=== PATIENT | male | born 1985 | race Caucasian/White ===

== ENCOUNTER 2018-10-15 14:18 | Emergency (ER) | payer SELFPAY ==
[~2018-10-15] VITALS: Ht 185.4 cm; Wt 92.5 kg
[2018-10-15 14:18] VITALS: BP 143/85
--- NOTE | 2018-10-15 14:18 | NUR ---
PATIENT [facility] TO ER CHAIR [facility]
--- NOTE | 2018-10-15 14:20 | NUR ---
PT IS A 33 Y/O MALE BIB [place] [facility] FOR PRE-BOOK. PER PD PT IS CURRENTLY ON 5150 HOLD BUT WILL GO TO ANOTHER FACILITY, AWAITING ASSIGNMENT FROM [facility]. PT IS IN NO SIGNS OF PAIN. PT IN NO SIGNS OF CP, SOB, N/V/D. PT AWAKE AND ALERT, RR EVEN/UNLABORED. PT REPOSITIONED FOR COMFORT, SITTING IN HANDCUFFS WITH PD. ER MD DR. CALDERA NOTIFIED. WILL CONTINUE TO MONITOR. NO PMH NKA
--- NOTE | 2018-10-15 14:22 | NUR ---
PATIENT SITTING IN CHAIR E, UNDER EMT SITTER, SI PRECAUTIONS IMPLEMENTED.
--- NOTE | 2018-10-15 14:25 | NUR ---
KUSUM RUIZ MADE AWARE PT WILL BE TAKEN TO ANOTHER FACILITY FOR 5150 HOLD PLACEMENT.
--- NOTE | 2018-10-15 14:40 | NUR ---
ER MD DR. CALDERA EVALUATING PATIENT.
[2018-10-15 15:10] VITALS: BP 103/82
--- NOTE | 2018-10-15 15:10 | NUR ---
Patient discharged with v/s stable. Written and verbal after care instructions given and explained. Patient verbalized understanding. Police with in custody. All questions addressed prior to discharge. Advised to follow up with PMD.
== END 2018-10-15 15:10 | disposition home or self-care (01) ==
LOC: MED 14:18 → EDSEX 14:18 → MED 15:10
DX: F15.90 Other stimulant use, unspecified, uncomplicated (principal); Z02.89 Encounter for other administrative examinations
CPT/HCPCS: 99283

== ENCOUNTER 2019-04-04 12:17 | Emergency (ER) | payer OTHER ==
[~2019-04-04] VITALS: Ht 185.4 cm; Wt 91.6 kg
[2019-04-04 12:23] VITALS: BP 116/68
--- NOTE | 2019-04-04 12:23 | NUR ---
PT AMB TO BED 3 TO BE TRAIGED AT BEDSIDE, STEADY GAIT
--- NOTE | 2019-04-04 12:23 | NUR ---
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
[2019-04-04] MEDS ORDERED: methylPREDNISolone SS 125 MG/2 ML VIAL IVP ONE (12:25)
[2019-04-04] MEDS ORDERED: hydrOXYzine HCL 25 MG TAB PO ONE (12:25)
[2019-04-04] MEDS ORDERED: FAMOTIDINE 20 MG/2 ML VIAL IVP ONE (12:25)
[2019-04-04] MEDS ORDERED: diphenhydrAMINE 50 MG/ML VIAL IVP ONE (12:25)
[2019-04-04] MEDS ORDERED: EPINEPHrine 1:1000 - 1 MG/ML AMP SUBQ ONE (12:25)
--- NOTE | 2019-04-04 12:32 | NUR ---
SATURATION 97% ON SUPPLEMENTAL OXYGEN AT 8 LPM VIA SIMPLE MASK
--- NOTE | 2019-04-04 12:45 | NUR ---
PT CAME WITH C/O BEE STING TO R SIDE OF HEAD. PATIENT STATES HE HAS AN ALLERGY TO BEES. DOES NOT CARRY AN EPI PEN WITH HIM. PATIENT CONTINUES TO TAKE BREATHS BETWEEN EVERY WORD. STATES HE FEELS LIKE HIS THROAT IS TIGHTENING. PATIENT STARTED ON 5 L NASAL CANNULA. [id number]. ER MD AT THE BEDSIDE ASSESSING THE PT. PT CONNECTED TO THE MOBNITOR, O2 VIA NC 6L. RT CAME AND CHANGED TO MASK , 10 L O2.
--- NOTE | 2019-04-04 12:57 | NUR ---
PT GIVEN ALL MEDS ORDERED. SLEEPING COMFORTABLY IN HIS BED AT THIS TIME.
[2019-04-04] MEDS ORDERED: ALBUTEROL 0.083% 2.5 MG/3 ML NEBU INH ONE (14:25)
--- NOTE | 2019-04-04 14:37 | NUR ---
[facility]ER[facility]PIRATORY DRUG GIVEN ORDERED ENCOURAGED PATIENT FOR INTERMITTENT DEEP BREATHING DURING THERAPY
[2019-04-04 15:07] VITALS: BP 108/67
--- NOTE | 2019-04-04 15:07 | NUR ---
Patient discharged with v/s stable. Written and verbal after care instructions given and explained. Patient alert, oriented and verbalized understanding of instructions. Ambulatory with steady gait. All questions addressed prior to discharge. ID band removed. Patient advised to follow up with PMD. Rx of EPIPEN, PREDNISONE, ATARAX given. Patient educated on indication of medication including possible reaction and side effects. Opportunity to ask questions provided and answered. PT INSTRUCTED TO FOLLOW UP WITH [facility] FOR IMMUNOLOGY CARE. PT GIVEN EXCUSE FOR WORK TODAY
== END 2019-04-04 15:07 | disposition home or self-care (01) ==
LOC: MED 12:17
DX: T63.441A Toxic effect of venom of bees, accidental (unintentional), initial encounter (principal); T78.2XXA Anaphylactic shock, unspecified, initial encounter; X58.XXXA Exposure to other specified factors, initial encounter
CPT/HCPCS: 94640; 96372; 96374; 96375; 99283; J0171; J1200; J2930; J3490; J7613